=== PATIENT | male | born 1945 | race African-American/Black ===

== ENCOUNTER 2019-01-28 09:57 | Emergency (ER) | payer OTHER ==
[2019-01-28 10:04] VITALS: BP 126/65; PULSE 85; TEMP 98.2; BMI 25.8
[2019-01-28 11:10] LABS: BASO % 0.4 % (0-2.0); EOS % 1.3 % (0-4.5); HEMATOCRIT 41.8 % (35.4-49); HEMOGLOBIN 14.3 GM/dL (11.7-16.9); LYMPH % 15.1 % (8-40); MCH 30.5 pg (25.7-33.7); MCHC 34.1 g/dl (32.0-35.9); MEAN CELL VOLUME 89.5 fl (80-96); MONO % 5.7 % (3.8-10.2); NEUT % 77.5 % (42.8-82.8); PLATELET COUNT 179 K/MM3 (134-434); RBC 4.68 M/mm3 (4.00-5.60); RDW 13.4 % (11.9-15.9); WHITE BLOOD COUNT 5.8 K/mm3 (4.0-10.0)
--- NOTE | 2019-01-28 11:27 | PDOC ---
History of Present Illness - General Chief Complaint: Weakness Stated Complaint: CONSTIPATION Time Seen by Provider: 01/28/19 10:23 History Source: Patient Exam Limitations: No Limitations - History of Present Illness Initial Comments: 01/28/19 11:22 HPI 73 YOM with no medical history presenting with episode of sweats this morning at work at [employer] office [employer]. sx self resolved, not associated with other complaints. he does admit the room was hot at the time, he felt better with opening the windows and sitting down. Denies fever, chills, syncope, chest pain, SOB, palpitation, dizziness, weakness , paresthesias, N, V, D, abdominal pain, bladder and bowel problems, leg swelling, No sick contacts or travel. No new changes in medications. No suspicious food intake. no recent stressors. ate breakfast this morning, tolerating PO intake, he does admit to constipation x 3-4 days, due to eating more cheese than usual, which causes constipation. he did make BM today, small amounts of brown, nonbloody stool. sx today did not occur during BM or micturation. Allergies: None Past Medical History: none Social history: Lives with family. No tobacco, ETOH or drug use. Surgical history: none Meds: as documented in EMR Review of systems Constitutional: no fevers or chills. +sweats. HEENT: no headache or dizziness. No congestion. No visual/hearing disturbances. CVS: no cp or syncope. Resp: no sob. No cough. Gastrointestinal: no abdominal pain, nausea or vomiting. +constipation. no bloody stools. Genitourinary: no urinary sx, hematuria. MUSCULOSKELETAL: No joint pain and swelling. No neck or back pain. SKIN: no redness or skin changes, no discharge, no rash. No wounds. Hematologic: no easy bruising/bleeding. NEUROLOGIC: No headache, dizziness, LOC or altered mental status. No weakness, numbness or tingling. Psych: no anxiety or depression Allergic/Immunologic: no allergies All other systems reviewed and negative, or as documented in HPI. Physical exam: General: Well appearing, awake and alert, NAD. HEENT: NCAT, PERRL, EOMI, clear conjunctiva, anicteric, moist mucus membranes, clear oropharynx, no oral lesions.. Neck: neck supple, FROM Resp: CTAB, normal and even respirations, no respiratory distress CVS: RRR, no murmurs, 2+ peripheral pulses throughout, no peripheral edema Abdomen: soft, NTND, no peritoneal signs. Back: nontender, normal inspection and ROM MSK: no edema, WHITNEY x4, ROM intact. No clubbing or cyanosis. normal bulk and tone. Neuro: alert, oriented appropriately, no focal neuro deficits. clear speech Extrem: no calf tenderness, no LE edema Skin: warm and well perfused, cap refill <2 sec, normal color 01/28/19 11:26 Past History - Past Medical History Allergies/Adverse Reactions: Allergies Allergy/AdvReac Type Severity Reaction Status Date / Time No Known Allergies Allergy Verified 01/28/19 10:22 Home Medications: Ambulatory Orders NK [No Known Home Medication] 01/28/19 COPD: No CHF: No Other medical history: DENIES - Immunization History Immunization Up to Date: No - Suicide/Smoking/Psychosocial Hx Smoking History: Never smoked Hx Alcohol Use: No Drug/Substance Use Hx: No *Physical Exam - Vital Signs Last Vital Signs Temp Pulse Resp BP Pulse Ox 98.2 F 85 18 126/65 99 01/28/19 10:00 01/28/19 10:00 01/28/19 10:00 01/28/19 10:00 01/28/19 10:00 Heart Score/ECG Review #1 ECG reviewed & interpreted by me at: 10:45 General ECG Interpretation: Sinus Rhythm, Normal Rate, Normal Intervals, No acute ischemic changes Compared to previous ECG there are: Previous ECG unavail 01/28/19 11:25 EKG normal sinus rhythm at 60 bpm, no interval abnormalities, narrow QRS, ST and T wave segments and morphology normal. ED Treatment Course - LABORATORY CBC & Chemistry Diagram: 01/28/19 11:00 01/28/19 10:26 - ADDITIONAL ORDERS Additional order review: 01/28/19 11:00 RBC 4.68 MCV 89.5 MCHC 34.1 RDW 13.4 MPV 9.0 Neutrophils % 77.5 Lymphocytes % 15.1 Monocytes % 5.7 Eosinophils % 1.3 Basophils % 0.4 Medical Decision Making - Medical Decision Making 01/28/19 11:24 See HPI for details Vital signs reviewed, wnl. Prior notes reviewed, including admissions, discharges and consultations. laboratory results and imaging reviewed, basic labs and lytes wnl Cardiac panel_neg trop, reassuring, less likely cardiac, no cp EKG normal sinus rhythm at 60 bpm, no interval abnormalities, narrow QRS, ST and T wave segments and morphology normal. ED course - no acute events, well appearing, asymptomatic likely environmental trigger, warm room as precipitant; no high risk features, no cp/sob/syncope or focal neuro sx. no infectious sx. no urinary sx, defer testing; PE normal. abdomen benign, no peritoneal sx, no obstipation or s/s obstruction. +flatus.. constipation care - hydration and high fiber, prune diet and po miralax. Dispo: Pt informed of my clinical impression, treatment recommendations and disposition plan. All questions answered to patient's satisfaction and expressed understanding and comfort with this. Reasons for returning to the ED sooner discussed including new or persistent/worsening symptoms with the patient otherwise, follow up with primary care physician. At the time of discharge, the patient is alert, clinically improved, tolerating po and verbalizes understanding of instructions, satisfied with the care received and felt comfortable with the plan. Patient does not suffer from an acute life- threatening medical condition at this time he is safe for outpatient follow-up. 01/28/19 11:26 01/28/19 11:46 *DC/Admit/Observation/Transfer Diagnosis at time of Disposition: Sweating, Encounter for medical screening examination, Constipation - Discharge Dispostion Disposition: HOME Condition at time of disposition: Improved Decision to Admit order: No - Referrals Referrals: [facility] – [place], [place] Internal Med [facility] [Provider Group] [facility] [Provider Group] - Patient Instructions Printed Discharge Instructions: DI for Constipation Additional Instructions: 1) Please follow-up with your primary care doctor in the next 1-2 days. Please call tomorrow for for any urgent issues. 2) You were given a copy of the tests performed today. Please bring the results with you and review them with your primary care doctor. 3) If you have any worsening of symptoms or any other concerns please return to the ED immediately. Return if worsening symptoms including fevers, headache, vomiting, visual or hearing disturbances, abdominal pain, chest pain, shortness of breath, syncope, dehydration, inability to take things by mouth/vomiting, altered mental status, or worsening concerning symptoms. 4) Please continue taking your home medications as directed. your medications on discharge include over the counter miralax as directed . side effects may include upset stomach, abdominal pain, vomiting, or diarrhea. do not drink alcohol with your medications. high fiber diet and hydration, prunes and avoid triggers for constipation keep areas you are working in well aerated, ventilated and dress appropriately for weather, avoid dehydration or exerting too hard and heated environments that can make you stressed and unwell. Stay well hydrated and rest adequately. make an appointment. If you cannot follow-up with your primary care doctor please return to the ED - Post Discharge Activity
[2019-01-28 11:40] LABS: ALBUMIN 3.8 g/dl (3.4-5.0); ALK PHOS 93 U/L (45-117); ANION GAP 6 MMOL/L (8-16); BILIRUBIN,TOTAL 0.3 mg/dL (0.2-1); BLOOD UREA NITROGEN 19 mg/dL (7-18); CALCIUM 8.5 mg/dL (8.5-10.1); CHLORIDE 106 mmol/L (98-107); CO2 27 mmol/L (21-32); CREATININE 1.1 mg/dL (0.55-1.3); GLUCOSE,RANDOM 169 mg/dL (74-106); POTASSIUM 3.7 mmol/L (3.5-5.1); SGOT/AST 16 U/L (15-37); SGPT/ALT 28 U/L (13-61); SODIUM 140 mmol/L (136-145); TOT PROT 7.1 g/dl (6.4-8.2)
[2019-01-28 12:05] LABS: URINE APPEARANCE CLEAR; URINE BILIRUBIN NEGATIVE (NEGATIVE); URINE COLOR YELLOW; URINE GLUCOSE (UA) 1+ (NEGATIVE); URINE KETONE NEGATIVE (NEGATIVE); URINE LEUK ESTERASE NEGATIVE (NEGATIVE); URINE NITRITE NEGATIVE (NEGATIVE); URINE PROTEIN NEGATIVE (NEGATIVE)
--- NOTE | 2019-01-29 13:39 | EKG ---
Test Reason : Blood Pressure : / mmHG Vent. Rate : 060 BPM Atrial Rate : 060 BPM P-R Int : 170 ms QRS Dur : 088 ms QT Int : 434 ms P-R-T Axes : 067 066 034 degrees QTc Int : 434 ms NORMAL SINUS RHYTHM NORMAL ECG NO PREVIOUS ECGS AVAILABLE Confirmed by CESARIO FOX, OBDULIA ([id number]) on 01/29/2019 1:38:51 PM Referred By: DR. MURILLO Confirmed By:OBDULIA NASSAR MD
== END 2019-01-28 12:00 | disposition home or self-care (01) ==
LOC: JER 09:57
DX: Z01.89 Encounter for other specified special examinations (principal); R61 Generalized hyperhidrosis; K59.00 Constipation, unspecified
CPT/HCPCS: 36415; 80053; 81003; 84484; 85025; 87086; 93005; 93010; 99283-25